=== PATIENT | female | born 1970 | race African-American/Black ===

== ENCOUNTER → 2016-08-23 | Outpatient (CLI) | payer OTHER ==
[~2016-08-23] MED LIST: COLACE 100100 MG/CAP PO; FLEXERIL 1010 MG/TAB PO; LORTAB 5/500 501 TAB PO; MOTRIN 800800 MG/TAB PO; NAPROSYN500 MG PO; NO HOME MEDICATIONS; NORCO 325 MG-51 TAB PO
== END ==
LOC: MC.RAD 07:20
DX: Z12.31 Encounter for screening mammogram for malignant neoplasm of breast (principal)

== ENCOUNTER → 2018-02-13 | Outpatient (CLI) | payer OTHER | LOC: MC.RAD 15:40 | DX: Z12.31 Encounter for screening mammogram for malignant neoplasm of breast (principal) ==

== ENCOUNTER 2018-10-09 19:18 | Emergency (ER) | payer OTHER ==
[~2018-10-09] VITALS: Ht 162.6 cm; Wt 82.7 kg
[~2018-10-09 19:18] MED LIST changes: +ASPIRIN E.C. 8181 MG PO; +CRESTOR 10MG10 MG PO; +CRESTOR20 MG PO; +GLUCOPHAGE500 MG/TAB PO; +KYLIC PO; +LOPRESSOR 225 MG/TAB PO; +PRINIVIL20 MG PO; +VITAMIN B COMPL1 SGL PO
[2018-10-09 19:24] VITALS: TEMP 97.5
[2018-10-09] MEDS ORDERED: ALEVE LIQCAPS (21:07)
[2018-10-09 21:21] LABS: BASO % 0.1 % (0.0-2.0); EOS # 0.1 (0.0-0.7); EOS % 1.2 % (0-4.0); GRAN # 4.7 (1.4-6.5); GRAN % 62.5 % (42.2-75.2); HEMATOCRIT 39.1 % (37.0-47.0); HEMOGLOBIN 13.1 g/dl (12.5-16.0); LYMPH # 2.2 (1.2-3.4); LYMPH % 29.1 % (20.0-51.0); MEAN CELL VOLUME 96 fl (80.0-100.0); MEAN CORPUSCULAR HEMOGLOBIN 32 pg (27.0-31.0); MEAN CORPUSCULAR HGB CONC 34 g/dl (33.0-37.0); MEAN PLATELET VOLUME 11.1 fl (7.4-10.4); MONO # 0.5 (0.1-0.6); MONO % 6.8 % (1.7-9.3); PLATELET COUNT 183 K/mm3 (130-400); RED BLOOD COUNT 4.09 M/mm3 (4.10-5.30); REDCELL DISTRIBUTION WIDTH-CV 13.5 % (11.5-14.5)
[2018-10-09 21:49] LABS: ALANINE AMINOTRANSFERASE 17 U/L (9-52); ALKALINE PHOSPHATASE 74 U/L (50-136); ANION GAP 6 mmol/L (7-16); AST,SGOT 21 U/L (15-37); BILIRUBIN,TOTAL 0.3 mg/dL (0.0-1.0); BLOOD UREA NITROGEN 19 mg/dL (7-17); CALCIUM 9.3 mg/dL (8.4-10.2); CARBON DIOXIDE 29 mmol/L (22-30); CHLORIDE 101 mmol/L (98-107); CREATININE, serum 0.88 mg/dL (0.52-1.25); GLUCOSE 187 mg/dL (74-106); POTASSIUM 3.6 mmol/L (3.4-5.0); SODIUM 136 mmol/L (137-145); TOTAL PROTEIN 7.7 gm/dL (6.4-8.2)
[2018-10-09 22:04] LABS: TROPONIN-I < 0.012 ng/mL (0.000-0.035)
[2018-10-09 22:21] VITALS: BP 138/78; PULSE 68
== END 2018-10-09 22:21 | disposition home or self-care (01) ==
LOC: COL.ER 19:18
PROVIDERS: Emergency Medicine
DX: R07.89 Other chest pain (principal); I10 Essential (primary) hypertension; E78.5 Hyperlipidemia, unspecified; E11.9 Type 2 diabetes mellitus without complications; Z79.82 Long term (current) use of aspirin; Z79.84 Long term (current) use of oral hypoglycemic drugs

== ENCOUNTER → 2019-07-18 | Outpatient (CLI) | payer OTHER ==
[~2019-07-18] MED LIST changes: +ALEVE LIQCAPS
== END ==
LOC: MC.RAD 08:15
DX: Z12.31 Encounter for screening mammogram for malignant neoplasm of breast (principal)

== ENCOUNTER 2021-03-09 10:47 | Emergency (ER) | payer BC ==
[~2021-03-09] VITALS: Ht 160 cm; Wt 81.8 kg
[~2021-03-09 10:47] MED LIST changes: +CRUTCHES MC
[2021-03-09 11:55] VITALS: TEMP 98.1
[2021-03-09 12:20] LABS: ALBUMIN 4.2 gm/dL (3.5-5.0); BILIRUBIN,TOTAL 0.5 mg/dL (0.0-1.0); CALCIUM 9.5 mg/dL (8.4-10.2); CREATININE, serum 0.63 (0.52-1.25); POTASSIUM 3.7 mmol/L (3.4-5.0); TOTAL PROTEIN 8.1 gm/dL (6.4-8.2)
[2021-03-09 12:24] LABS: BASO % 0.2 % (0.0-2.0); EOS # 0.1 (0.0-0.7); EOS % 1.5 % (0-4.0); GRAN # 2.1 (1.4-6.5); GRAN % 44.8 % (42.2-75.2); HEMATOCRIT 41.2 % (37.0-47.0); HEMOGLOBIN 13.4 g/dl (12.5-16.0); LYMPH # 2.1 (1.2-3.4); LYMPH % 45.7 % (20.0-51.0); MEAN CELL VOLUME 97 fl (80.0-100.0); MEAN CORPUSCULAR HEMOGLOBIN 32 pg (27.0-31.0); MEAN CORPUSCULAR HGB CONC 33 g/dl (33.0-37.0); MONO # 0.4 (0.1-0.6); MONO % 7.8 % (1.7-9.3); PLATELET COUNT 217 K/mm3 (130-400); RED BLOOD COUNT 4.26 M/mm3 (4.10-5.30); REDCELL DISTRIBUTION WIDTH-CV 13.8 % (11.5-14.5)
[2021-03-09 12:31] LABS: TROPONIN-I 0.019 ng/mL (0.000-0.035)
[2021-03-09 14:25] LABS: COLLECTION METHOD CLEAN CATCH
[2021-03-09 14:32] LABS: MUCOUS Present /lpf; PH 5 (5-8); URINE APPEARANCE Hazy; URINE BACTERIA None Seen /hpf; URINE BILIRUBIN Negative (NEGATIVE); URINE BLOOD Negative (NEGATIVE); URINE COLOR Yellow; URINE GLUCOSE Negative (NEGATIVE); URINE KETONE Negative (NEGATIVE); URINE LEUKOCYTE ESTERASE Negative (NEGATIVE); URINE NITRATE Negative (NEGATIVE); URINE PROTEIN(semi-quant) Negative (NEGATIVE); URINE RBC 0-2 /hpf; URINE UROBILINOGEN Negative (NEGATIVE)
[2021-03-09 16:24] VITALS: BP 154/75; PULSE 69
== END 2021-03-09 16:27 | disposition home or self-care (01) ==
LOC: COL.ER 10:47
PROVIDERS: Physician Assistant
DX: E86.0 Dehydration (principal); E11.9 Type 2 diabetes mellitus without complications; I10 Essential (primary) hypertension; E78.5 Hyperlipidemia, unspecified; Z79.84 Long term (current) use of oral hypoglycemic drugs; Z79.899 Other long term (current) drug therapy

== ENCOUNTER → 2021-12-16 | Outpatient (CLI) | payer OTHER | LOC: MC.RAD 08:47 | DX: Z12.31 Encounter for screening mammogram for malignant neoplasm of breast (principal) ==

== ENCOUNTER 2022-05-26 08:31 | Day surgery (SDC) | payer OTHER ==
[~2022-05-26] VITALS: Ht 162.6 cm; Wt 75.6 kg
[~2022-05-26 08:31] MED LIST changes: +ASPIRIN 81M81 MG/TA2 PO; +COZAAR100 MG PO; -GLUCOPHAGE500 MG/TAB PO; +XALATAN EYE DROPS OU; +XIGDUO5/1000 PO; +ZETIA 10MG TAB10 MG PO
[2022-05-26 09:16] VITALS: BP 125/77; PULSE 77; TEMP 97.9
[2022-05-26 10:15] VITALS: BP 111/67; PULSE 87; TEMP 97.1
--- NOTE | 2022-05-26 10:27 | NUR ---
1015 - PT arrives w/ Diane RN; PT assisted respositioning in bed by RN to sit at bedside before ambulating 2:1 from cart to chair. Monitors applied and VSS. PT is drowsy but oriented; denies pain and nausea. Warm blankets provided and non-slip socks reamin on. Verbal room report obtained. PT requested RN contact ride home. Snack and drink provided per PT request. PT oriented to room and call cronin, within reach if needed. Will monitor per intervals.
[2022-05-26 10:30] VITALS: BP 143/80; PULSE 77
--- NOTE | 2022-05-26 10:40 | NUR ---
1030 - VSS. PT has finished snack and drink; continues to deny nausea and pain. Call cronin remains within reach if needed. PT alert and oriented x3.
[2022-05-26 10:45] VITALS: BP 140/77; PULSE 69
--- NOTE | 2022-05-26 10:56 | NUR ---
1045 - VSS. PT expressed desire to be discharged. Call cronin is within reach if needed. Awaiting DR to speak w/ PT.
--- NOTE | 2022-05-26 10:56 | NUR ---
1045 - VSS. PT expressed desire to be discharged. Call cronin is within reach if needed. Awaiting DR to speak w/ PT.
--- NOTE | 2022-05-26 11:10 | NUR ---
1100 - Monitors discontinued. IV discontinued. Catheter tip intact and pressure bandage applied; no redness or swelling noted. DC instructions and educational material reviewed w/ PT who verbalized understanding. Questions answered to PT satisfaction. PT assisted w/ changing into personal clothes as directed. Awaiting DR; call cronin remains within reach of PT. 1110 - DR is speaking w/ PT.
--- NOTE | 2022-05-26 11:25 | NUR ---
1120 - PT used the call cronin to let RN know her ride is here. PT was dismissed from endo via wheelchair to the PT entrence by Maggie LIMA. PT has DC packet and personal belongings and was transferred into the care of her family, who are driving private car.
== END 2022-05-26 11:25 | disposition home or self-care (01) ==
LOC: SDCO 08:31
DX: Z12.11 Encounter for screening for malignant neoplasm of colon (principal); I10 Essential (primary) hypertension
CPT/HCPCS: J2704; J7030

== ENCOUNTER 2023-11-24 22:18 | Emergency (ER) | payer OTHER ==
[~2023-11-24] VITALS: Ht 157.5 cm; Wt 78.2 kg
[2023-11-24 22:29] VITALS: TEMP 98.4
[2023-11-24] MEDS ORDERED: hydrALAZINE 20 MG/ML 1 ML VIAL IV ONE (23:30)
[2023-11-24 23:37] LABS: COLLECTION METHOD CLEAN CATCH
[2023-11-24 23:41] LABS: BASO % 0.2 % (0.0-2.0); EOS # 0.1 K/mm3 (0.0-0.7); EOS % 1.5 % (0.0-4.0); GRAN # 3.1 K/mm3 (1.4-6.5); GRAN % 50.4 % (42.2-75.2); HEMATOCRIT 42.1 % (37.0-47.0); HEMOGLOBIN 13.9 g/dl (12.5-16.0); LYMPH # 2.4 K/mm3 (1.2-3.4); LYMPH % 39.3 % (20.0-51.0); MEAN CELL VOLUME 98 fl (80.0-100.0); MEAN CORPUSCULAR HEMOGLOBIN 32 pg (27-31); MEAN CORPUSCULAR HGB CONC 33 g/dl (33.0-37.0); MEAN PLATELET VOLUME 10.7 fl (7.4-10.4); MONO # 0.5 K/mm3 (0.1-0.6); MONO % 8.4 % (1.7-9.3); PLATELET COUNT 215 K/mm3 (130-400); RED BLOOD COUNT 4.31 M/mm3 (4.10-5.30); REDCELL DISTRIBUTION WIDTH-CV 13.7 % (11.5-14.5)
[2023-11-24 23:42] LABS: URINE APPEARANCE CLEAR (CLEAR/HAZY); URINE BLOOD NEGATIVE (NEGATIVE); URINE COLOR YELLOW (YELLOW); URINE GLUCOSE 3+ (NEGATIVE); URINE KETONE NEGATIVE (NEGATIVE); URINE NITRATE NEGATIVE (NEGATIVE); URINE PROTEIN(semi-quant) NEGATIVE (NEGATIVE); URINE UROBILINOGEN 0.2 E.U/dL (0.2-1.0)
[2023-11-24 23:44] LABS: PROTHROMBIN TIME 11.3 SECONDS (9.7-12.8)
[2023-11-24 23:47] LABS: PARTIAL THROMBOPLASTIN TIME 28.3 SECONDS (26.0-37.0)
[2023-11-24 23:58] LABS: ALBUMIN 3.9 g/dL (3.5-5.0); BILIRUBIN,TOTAL 0.5 mg/dL (0.2-1.2); CALCIUM 9.9 mg/dL (8.4-10.2); CREATININE, serum 0.75 mg/dL (0.57-1.11); POTASSIUM 3.9 mEq/L (3.5-4.5)
[2023-11-25 00:06] LABS: TROPONIN-I 0.01 ng/mL (0.00-0.033)
[2023-11-25] MEDS ORDERED: hydrALAZINE 20 MG/ML 1 ML VIAL IV ONE (00:15)
[2023-11-25] MEDS ORDERED: Ondansetron 4 MG/2 ML VIAL IV ONE (00:30)
[2023-11-25] MEDS ORDERED: Iohexol 300 - 100 ML VIAL IV ONE (01:02)
[2023-11-25] MEDS ORDERED: NS 50 ML IV ONE (01:03)
[2023-11-25] MEDS ORDERED: ZOFRAN ODT4 MG PO (03:14)
[2023-11-25 03:26] VITALS: BP 167/93; PULSE 80
== END 2023-11-25 03:26 | disposition home or self-care (01) ==
LOC: COL.ER 22:18
PROVIDERS: Emergency Medicine
DX: R07.89 Other chest pain (principal); R19.7 Diarrhea, unspecified; I10 Essential (primary) hypertension; R11.0 Nausea
CPT/HCPCS: J0360; J2405; Q9967